=== PATIENT | male | born 2000 | race Caucasian/White ===

== ENCOUNTER 2021-04-11 18:10 | Emergency (ER) | payer SELFPAY ==
--- NOTE | 2021-04-11 20:05 | EDM.PDOC ---
ED [facility] GENERAL MEDICAL PROBLEM - General Chief Complaint: ENT Problem Stated Complaint: POSSIBLE STREP THROAT Time Seen by Provider: 04/11/21 19:24 Source of Information: Reports: Patient History Limitations: Reports: No Limitations - History of Present Illness INITIAL COMMENTS - FREE TEXT/NARRATIVE: 20-year-old male presents with sore throat, nasal congestion, cough with sputum production for 3 days, nausea. He is not vaccinated against Covid. Denies fever, chills, body aches, myalgia. ROS: A 10-point review of systems, other than pertinent positives and negatives as stated per HPI, is otherwise negative Past medical history: No additional pertinent history Past Surgical history: No additional pertinent history Social history: No additional pertinent history Family history: No additional pertinent history PHYSICAL EXAM General: AOx4, GCS = 15, No distress HEENT: dry mucous membrane, trace erythema posterior oropharynx with no exudates, no stridor, no hoarse voice. Neck: supple, no meningismus, no Kernig or Brudzinski, no cervical lymphadenopathy. Cardiac: S1S2 RRR Respiratory: CTAB, no crackles or rales, no wheezing Abdomen: Soft, nontender, no rebound or guarding, nondistended, no pulsatile mass. Back: nontender Musculoskeletal: NVI distally, no deformity Neuro: No focal deficits, CN 2 - 12 WNL. Throat Pain Score (Numeric/FACES): 5 - Related Data Allergies Allergy/AdvReac Type Severity Reaction Status Date / Time No Known Allergies Allergy Verified 04/11/21 18:40 Home Meds: Home Meds Dextromethorphan/Benzocaine [Cepacol Sorethroat-Cough [place]] 1 each PO Q6H PRN #30 lozenge 04/11/21 [Rx] Past Medical History HEENT History: Reports: None Cardiovascular History: Reports: Other (See Below) Other Cardiovascular History: vaso vagal response with "hot food". Temp. Respiratory History: Reports: None Social & Family History - Family History Family Medical History: No Pertinent Family History - Tobacco Use Tobacco Use Status *Q: Never Tobacco User - Caffeine Use Caffeine Use: Reports: Coffee - Recreational Drug Use Recreational Drug Use: No ED ROS GENERAL - Review of Systems Review Of Systems: See Below (see dictation) ED EXAM, GENERAL - Physical Exam Exam: See Below (see dictation) Course - Vital Signs Last Recorded V/S: Last Vital Signs Temp 98.3 F 04/11/21 18:34 Pulse 87 04/11/21 18:34 Resp 24 H 04/11/21 18:34 BP 127/73 04/11/21 18:34 Pulse Ox 96 04/11/21 18:34 - Orders/Labs/Meds Labs: Laboratory Tests 04/11/21 04/11/21 Range/Units 19:47 20:38 SARS-CoV-2 RNA ([place]) NEGATIVE (NEGATIVE) Group A Strep (PCR) NOT DETECTED (NOT DETECT) - Re-Assessments/Exams Free Text/Narrative Re-Assessment/Exam: 04/11/21 21:50 After negative for Covid and Rapid A Strep swab in the ER, the patient improved and is currently stable for discharge. I performed a repeat exam and did not appreciate new abnormal findings. Patient exhibits normal vital signs and has a normal gait on road test. I advised the patient to return to the ER for reevaluation if symptoms worsened, including fever, worsening pain, or any other worrisome symptoms. I instructed the patient to follow up with their PCP within 2-3 days. MEDICAL DECISION MAKING: I reviewed the patients past medical records, lab and radiographic findings. I discussed the case with the patient. My differential diagnosis included: Covid, strep pharyngitis. His rapid A strep and Covid swab were negative. He is well appearing, symptoms are consistent with viral URI, amendable for symptomatic treatment. I do not suspect pneumonia, PTX, CHF, PE or ACS. Lungs were CTAB with stable vitals. I stressed to the patient the importance of follow up with their PCP in 2-3 days. I instructed them to come back immediately for chest pain, sob, persistent vomiting, or other complaints. Departure - Departure Time of Disposition: 21:51 Disposition: Home, Self-Care 01 Condition: Good Clinical Impression: Viral URI, Pharyngitis - Discharge Information *PRESCRIPTION DRUG MONITORING PROGRAM REVIEWED*: Not Applicable *COPY OF PRESCRIPTION DRUG MONITORING REPORT IN PATIENT FAUSTO: Not Applicable Prescriptions: Dextromethorphan/Benzocaine [Cepacol Sorethroat-Cough [place]] 1 each PO Q6H PRN #30 lozenge PRN Reason: Sore Throat Instructions: Pharyngitis, [id number], Upper Respiratory Infection, Adult, [id number] Referrals: PCP,None [Primary Care Provider] - Forms: ED Department Discharge Additional Instructions: The need for follow-up, as well as the timing and circumstances, are variable depending upon the specifics of your emergency department visit. If you don't have a primary care physician on staff, we will provide you with a referral. We always advise you to contact your personal physician following an emergency department visit to inform them of the circumstance of the visit and for follow-up with them and/or the need for any referrals to a consulting specialist. The emergency department will also refer you to a specialist when appropriate. This referral assures that you have the opportunity for follow-up care with a specialist. All of these measure are taken in an effort to provide you with optimal care, which includes your follow-up. Under all circumstances we always encourage you to contact your private physician who remains a resource for coordinating your care. When calling for follow-up care, please make the office aware that this follow-up is from your recent emergency room visit. If for any reason you are refused follow-up, please contact the [facility] Emergency Department at and asked to speak to the emergency department charge nurse. If you do not have a primary care doctor, please follow up with the clinics below within 3-5 days. [facility] - Primary Care [address] [place] [id number] [facility] [address] [place] [address] Sepsis Event Note (ED) - Evaluation Sepsis Screening Result: No Definite Risk - Focused Exam Vital Signs: Vital Signs Temp Pulse Resp BP Pulse Ox 04/11/21 18:34 98.3 F 87 24 H 127/73 96
== END 2021-04-11 23:00 | disposition home or self-care (01) ==
LOC: MW.ED 18:10
DX: J02.9 Acute pharyngitis, unspecified (principal); Z20.822 Contact with and (suspected) exposure to COVID-19
CPT/HCPCS: 87651-QW; 99283; U0002

== ENCOUNTER 2022-10-18 06:49 | Emergency (ER) | payer SELFPAY ==
[2022-10-18] MEDS ORDERED: Sodium Chloride 0.9% 2.5 ML Syringe FLUSH PRN (06:59)
[2022-10-18] MEDS ORDERED: Sodium Chloride 0.9% 10 ML Syringe FLUSH PRN (06:59)
[2022-10-18] MEDS ORDERED: Ketorolac 30 MG/ML SDV IVPUSH ONE (07:00)
[2022-10-18] MEDS ORDERED: Sodium Chloride 0.9% 500 ML IV SCH (07:15)
[2022-10-18 07:27] LABS: CARBON DIOXIDE,CO2 25.6 mmol/L (21.0-32.0); POTASSIUM,K 3.1 mmol/L (3.5-5.1)
[2022-10-18] MEDS ORDERED: Morphine 2 MG/ML SYRINGE IVPUSH ONE (07:43)
[2022-10-18] MEDS ORDERED: Ondansetron 4 MG/2 ML SDV IVPUSH ONE (08:04)
[2022-10-18] MEDS ORDERED: Morphine 4 MG/ML Syringe IVPUSH ONE ×2 (08:33→09:09)
== END 2022-10-18 11:19 | disposition home or self-care (01) ==
LOC: MW.ED 06:49
DX: N13.2 Hydronephrosis with renal and ureteral calculous obstruction (principal)
CPT/HCPCS: 36415; 74176; 80048; 80305; 81001; 85025; 96361; 96374; 96375; 96376; 99284; J1885; J2270; J2405; J3490; J7040